=== PATIENT | male | born 1970 | race Caucasian/White ===

== ENCOUNTER → 2018-02-25 | Outpatient (CLI) | payer OTHER | LOC: COL.RAD 07:44 | DX: R74.8 Abnormal levels of other serum enzymes (principal); C15.8 Malignant neoplasm of overlapping sites of esophagus | CPT/HCPCS: Q9967 ==

== ENCOUNTER 2021-10-24 18:20 | Emergency (ER) | payer OTHER ==
[~2021-10-24] VITALS: Ht 180.3 cm; Wt 96.4 kg
[2021-10-24 18:30] VITALS: TEMP 97.3
[2021-10-24 20:37] LABS: BASO % 0.8 % (0.0-2.0); EOS # 0.1 K/mm3 (0.0-0.7); GRAN # 3.4 K/mm3 (1.4-6.5); GRAN % 67.2 % (42.2-75.2); HEMATOCRIT 39.8 % (42.0-52.0); HEMOGLOBIN 13.1 g/dl (13.5-18.0); LYMPH # 0.8 K/mm3 (1.2-3.4); LYMPH % 16.7 % (20.0-51.0); MEAN CELL VOLUME 84 fl (80.0-100.0); MEAN CORPUSCULAR HEMOGLOBIN 28 pg (27.0-31.0); MEAN CORPUSCULAR HGB CONC 33 g/dl (33.0-37.0); MONO # 0.6 K/mm3 (0.1-0.6); MONO % 12.9 % (1.7-9.3); RED BLOOD COUNT 4.72 M/mm3 (4.20-5.60); REDCELL DISTRIBUTION WIDTH-CV 22.1 % (11.5-14.5)
[2021-10-24 20:44] LABS: PLATELET COUNT 46 K/mm3 (130-400)
[2021-10-24 20:47] LABS: ALBUMIN 2.8 gm/dL (3.5-5.0); BILIRUBIN,TOTAL 2.9 mg/dL (0.2-1.2); C-REACTIVE PROTEIN 0.4 mg/dL (0.00-0.50); CALCIUM 8.3 mg/dL (8.4-10.2); CREATININE, serum 0.7 mg/dL (0.72-1.25); POTASSIUM 3.9 mmol/L (3.5-4.5); TOTAL PROTEIN 5.8 gm/dL (6.2-8.1)
[2021-10-24 20:50] LABS: COLLECTION METHOD CLEAN CATCH
[2021-10-24 21:04] LABS: MUCOUS Present (NOT PRESENT); PH 6 (5-8); SQUAMOUS EPITHELIAL None Seen /hpf (0-10); URINE APPEARANCE Clear (CLEAR/HAZY); URINE BACTERIA Many (NONE SEEN); URINE BILIRUBIN Negative (NEGATIVE); URINE BLOOD 2+ (NEGATIVE); URINE COLOR Red (YELLOW); URINE GLUCOSE Negative (NEGATIVE); URINE KETONE Negative (NEGATIVE); URINE LEUKOCYTE ESTERASE Negative (NEGATIVE); URINE NITRATE Negative (NEGATIVE); URINE PROTEIN(semi-quant) 2+ (NEGATIVE); URINE RBC >50 /hpf (0-2); URINE UROBILINOGEN Negative (NEGATIVE)
[2021-10-24] MEDS ORDERED: CEFTIN500 MG PO (22:49)
[2021-10-24 22:52] VITALS: BP 134/96; PULSE 82
== END 2021-10-24 22:52 | disposition home or self-care (01) ==
LOC: COL.ER 18:20
PROVIDERS: Emergency Medicine
DX: N30.91 Cystitis, unspecified with hematuria (principal)
CPT/HCPCS: J0696; J2405; J7030; Q9967

== ENCOUNTER 2021-11-22 13:06 | Day surgery (SDC) | payer OTHER ==
[2021-11-22] VITALS (17 sets, daily range): BP systolic 123–166; BP diastolic 56–102; PULSE 55–91; TEMP 98.1–98.9
[~2021-11-22] VITALS: Ht 180.3 cm; Wt 97.9 kg
[~2021-11-22 13:06] MED LIST: CEFTIN500 MG PO
--- NOTE | 2021-11-22 13:40 | NUR ---
PATIENT AMBULATED INTO AMBULATORY UNIT WITH STEADY GAIT. NO FAMILY WITH PATIENT AT THIS TIME. PATIENT IS ALERT AND ORIENTED X 4. CONSENT EXPLAINED AND PATIENT SIGNED. HISTORY COMPLETED. ASSESSMENT COMPLETED. LUNGS CTA. HEART S1S2, REGULAR. BOWEL SOUNDS HEARD. PULSES FELT. PATIENT HAS PORT. PORT ACCESSED PER POLICY BY SHELTON TOMAS RN. LAB IN ROOM AND GIVEN BLOOD FOR CBC.
[2021-11-22] MEDS ORDERED: PROTONIX 40MG T40 MG PO (13:48)
[2021-11-22] MEDS ORDERED: LIPITOR20 MG PO (13:48)
[2021-11-22] MEDS ORDERED: VITAMIN D 50,1.25 MG PO (13:49)
[2021-11-22 14:28] LABS: BASO # 0.1 K/mm3 (0.0-0.2); BASO % 1.4 % (0.0-2.0); EOS # 0.1 K/mm3 (0.0-0.7); EOS % 3.2 % (0.0-4.0); GRAN # 2.7 K/mm3 (1.4-6.5); GRAN % 60.5 % (42.2-75.2); HEMATOCRIT 40.9 % (42.0-52.0); HEMOGLOBIN 13.4 g/dl (13.5-18.0); LYMPH # 0.9 K/mm3 (1.2-3.4); LYMPH % 19.4 % (20.0-51.0); MEAN CELL VOLUME 83 fl (80.0-100.0); MEAN CORPUSCULAR HEMOGLOBIN 27 pg (27-31); MEAN CORPUSCULAR HGB CONC 33 g/dl (33.0-37.0); MONO # 0.7 K/mm3 (0.1-0.6); PLATELET COUNT 62 K/mm3 (130-400); RED BLOOD COUNT 4.92 M/mm3 (4.20-5.60); REDCELL DISTRIBUTION WIDTH-CV 21.2 % (11.5-14.5)
--- NOTE | 2021-11-22 18:15 | NUR ---
PATIENT ADMITED INTO ROOM 348 POST OP. A&O. VSS. DENIES PAIN OR NAUSEA. PATIENT ASSISTED TO BATHROOM TO VOID BUT WAS UNABLE. PACU REPORTED PATIENT FELT THE URGE TO VOID DOWN THERE BUT DIDN'T HAVE MUCH ON A BLADDER SCAN. WILL CONTINUE TO MONITOR. IF PATIENT MEETS DISCHARGE CRITERIA HE WILL LEAVE LATER TONIGHT. QUARTER FOLDER TAKING OVER.
--- NOTE | 2021-11-22 19:13 | NUR ---
RECEIVED CHANGE OF SHIFT REPORT FROM DAY SHIFT RN.
--- NOTE | 2021-11-22 19:22 | NUR ---
REPORTS UNABLE TO VOID WHEN ADMIT TO ROOM, NO URGE AT THIS TIME. TOLERATING SIPS OF WATER AT THIS TIME. DENIES CHEST PAIN/SOA/NAUSEA. 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 IV FLUID INFUSING PER PORTACATH WITH NO PROBLEMS.
--- NOTE | 2021-11-22 19:45 | NUR ---
PATIENT VOIDED SMALL AMOUNT RED TINGED URINE WITH RED/BLOODY SEDIMENT. ENCOURAGED PATIENT TO DRINK MORE FLUIDS, IE WATER, IF HAS NO NAUSEA. PATIENT VOICED UNDERSTANDING.
--- NOTE | 2021-11-22 20:30 | NUR ---
PATIENT WITH N/V WHEN ATTEMPTING TO VOID WHILE STANDING, EMESIS SMALL THIN LIGHT GREENISH WITH FAINT PINK TINGE OBSERVING MOSTLY DRY HEAVING STANDING AT ROOM SINK. SEE MAR FOR MEDS GIVEN. PATIENT AGREED TO TAKE TYLENOL FOR COMPLAINT OF MILD BLADDER/END OF PENIS DISCOMFORT. OBSERVED 100 ML RED TINGED URINE, NO CLOTS OBSERVED.
--- NOTE | 2021-11-22 21:28 | NUR ---
TOLERATED SOLID FOOD AT THIS TIME, ATTEMPTING TO VOID. IV FLUIDS INFUSING WITH NO PROBLEMS. REPORTS SOME DISCOMFORT S/P TYLENOL GIVEN THAT IS BETTER THAN PRIOR TO TYLENOL TAKEN.
--- NOTE | 2021-11-22 21:30 | NUR ---
TOLERATING PO FLUIDS, TAKING SIPS ONLY AT THIS TIME. HAS NOT VOIDED AGAIN AT THIS TIME. REPORTS SOME MILD DISCOMFORT AFTER TYLENOL GIVEN.
--- NOTE | 2021-11-22 21:50 | NUR ---
VOIDED SMALL AMOUNT OF URINE, RED TINGED, NO CLOTS OBSERVED. DENIES FURTHER NAUSEA.
--- NOTE | 2021-11-22 22:45 | NUR ---
DEACCESSED RIGHT CHEST PORTACATH PER HOSP P/P, PATIENT TOLERATED PROCESS WITH NO C/O REPORTED. PLACED SMALL 2x2 GAUZE AND COVERED WITH SMALL TEGADERM. NO FURTHER BLEEDING ONCE PORTACATH ACCESS NEEDLE REMOVED.
== END 2021-11-22 22:55 | disposition home or self-care (01) ==
LOC: SDCO 13:06 → SURG 18:15 → SDCO 22:55
PROVIDERS: Nurse Anesthetist, Certified Registered
DX: R31.0 Gross hematuria (principal); K21.9 Gastro-esophageal reflux disease without esophagitis; E78.5 Hyperlipidemia, unspecified; G62.9 Polyneuropathy, unspecified; D70.9 Neutropenia, unspecified; D69.6 Thrombocytopenia, unspecified; D64.9 Anemia, unspecified; Z79.899 Other long term (current) drug therapy; Z85.841 Personal history of malignant neoplasm of brain; Z90.89 Acquired absence of other organs; Z85.01 Personal history of malignant neoplasm of esophagus; Z92.21 Personal history of antineoplastic chemotherapy
CPT/HCPCS: J1644; J2405; J2704; J3010; Q9967

== ENCOUNTER 2022-05-09 07:42 | Day surgery (SDC) | payer OTHER ==
[~2022-05-09] VITALS: Ht 180.3 cm; Wt 92.4 kg
[~2022-05-09 07:42] MED LIST changes: +LIPITOR20 MG PO; +PROTONIX 40MG T40 MG PO; +VITAMIN D 50,1.25 MG PO
[2022-05-09] MEDS ORDERED: RAMUCIRUMAB (08:10)
[2022-05-09] MEDS ORDERED: [UNRECOGNIZED DRUG - OTHER] (08:11)
[2022-05-09 08:16] VITALS: BP 125/97; PULSE 69; TEMP 98.6
[2022-05-09 09:25] VITALS: BP 124/90; PULSE 57; TEMP 98.2
--- NOTE | 2022-05-09 09:25 | NUR ---
PATIENT ARRIVES TO ROOM 1 VIA CART. ASSIST X 2 TO CHAIR. VITAL SIGNS WNL. DR AT BEDSIDE. PATIENT REQUESTS APPLE JUICE AND A MUFFIN. WE ARE SUPPOSED TO CALL HIS WHEN HE IS READY FOR DISCHARGE. WILL CONTINUE TO MONITOR.
[2022-05-09 09:40] VITALS: BP 130/87; PULSE 54
--- NOTE | 2022-05-09 09:40 | NUR ---
PATIENT IS MORE AWAKE AND ALERT. TOLERATED MUFFIN AND APPLE JUICE WELL. VITAL SIGNS WNL. I CALLED PATIENT'S TO LET HER KNOW HE WILL BE READY FOR DISCHARGE IN ABOUT 15 MINUTES, SHE IS ON HER WAY.
[2022-05-09 09:55] VITALS: BP 125/98; PULSE 53
--- NOTE | 2022-05-09 09:55 | NUR ---
PATIENT IS READY FOR DISCHARGE. PORT DISCONTINUED PER PROTOCOL. PATIENT IS ALERT AND ORIENTED. IS IN THE WAITING ROOM. DISCHARGE INSTRUCTIONS REVIEWED. PATIENT WILL BE TAKEN DOWNSTAIRS VIA WHEELCHAIR WHEN READY.
--- NOTE | 2022-05-09 10:05 | NUR ---
PORT REMOVED PER PROTOCOL. FLUSHED WITH 10 CC HEPARIN AND 10 CC NORMAL SALINE.
== END 2022-05-09 10:10 | disposition home or self-care (01) ==
LOC: SDCO 07:42
DX: C16.0 Malignant neoplasm of cardia (principal); K29.30 Chronic superficial gastritis without bleeding; K25.7 Chronic gastric ulcer without hemorrhage or perforation
CPT/HCPCS: J2704; J7030

== ENCOUNTER 2022-07-24 10:01 | Emergency (ER) | payer OTHER ==
[~2022-07-24] VITALS: Ht 180.3 cm; Wt 90.9 kg
[~2022-07-24 10:01] MED LIST changes: +RAMUCIRUMAB; +[UNRECOGNIZED DRUG - OTHER]
[2022-07-24 11:13] LABS: BASO % 0.7 % (0.0-2.0); EOS # 0.1 K/mm3 (0.0-0.7); EOS % 1.8 % (0.0-4.0); GRAN # 5.1 K/mm3 (1.4-6.5); GRAN % 88.8 % (42.2-75.2); HEMATOCRIT 42.5 % (42.0-52.0); HEMOGLOBIN 14.1 g/dl (13.5-18.0); LYMPH # 0.3 K/mm3 (1.2-3.4); LYMPH % 5.6 % (20.0-51.0); MEAN CELL VOLUME 82 fl (80.0-100.0); MEAN CORPUSCULAR HEMOGLOBIN 27 pg (27-31); MEAN CORPUSCULAR HGB CONC 33 g/dl (33.0-37.0); MONO # 0.2 K/mm3 (0.1-0.6); MONO % 2.6 % (1.7-9.3); PLATELET COUNT 55 K/mm3 (130-400); RED BLOOD COUNT 5.16 M/mm3 (4.20-5.60); REDCELL DISTRIBUTION WIDTH-CV 20.8 % (11.5-14.5)
[2022-07-24 11:20] LABS: COLLECTION METHOD CLEAN CATCH
[2022-07-24 11:29] LABS: ALBUMIN 2.7 gm/dL (3.5-5.0); BILIRUBIN,TOTAL 2.9 mg/dL (0.2-1.2); C-REACTIVE PROTEIN 3.7 mg/dL (0.00-0.50); CALCIUM 8.4 mg/dL (8.4-10.2); CREATININE, serum 0.79 mg/dL (0.72-1.25); POTASSIUM 4.4 mmol/L (3.5-4.5); TOTAL PROTEIN 5.7 gm/dL (6.2-8.1)
[2022-07-24 12:05] LABS: MUCOUS Present (NOT PRESENT); SQUAMOUS EPITHELIAL 0-2 /hpf (0-10); URINE BACTERIA None Seen /hpf (NONE SEEN); URINE RBC 0-2 /hpf (0-2)
[2022-07-24 12:06] LABS: PH 5.5 (5-8); URINE APPEARANCE Hazy (CLEAR/HAZY); URINE COLOR Amber (YELLOW); URINE GLUCOSE Negative (NEGATIVE); URINE KETONE Negative (NEGATIVE); URINE PROTEIN(semi-quant) 3+ (NEGATIVE)
[2022-07-24 12:07] LABS: URINE BLOOD Negative (NEGATIVE); URINE NITRATE Negative (NEGATIVE)
[2022-07-24 13:45] VITALS: TEMP 99.7
[2022-07-24] MEDS ORDERED: LEVAQUIN 5500 MG/TA1 PO (13:58)
[2022-07-24 14:06] VITALS: BP 137/88; PULSE 77
== END 2022-07-24 14:07 | disposition home or self-care (01) ==
LOC: COL.ER 10:01
PROVIDERS: Nurse Practitioner
DX: R11.2 Nausea with vomiting, unspecified (principal); R51.9 Headache, unspecified; Z20.822 Contact with and (suspected) exposure to COVID-19
CPT/HCPCS: J1200; J2405; J2765; J7030

== ENCOUNTER 2023-04-12 12:02 | Outpatient (CLI) | payer OTHER ==
[~2023-04-12] VITALS: Ht 180.3 cm; Wt 93.8 kg
[~2023-04-12 12:02] MED LIST changes: +LEVAQUIN 5500 MG/TA1 PO
[2023-04-12] MEDS ORDERED: KEYTRUDA25 MG/ML IV (12:19)
[2023-04-12] MEDS ORDERED: COREG 3.123.125 MG/T PO (12:21)
[2023-04-12] MEDS ORDERED: ALDACTONE 25MG25 M1 PO (12:21)
[2023-04-12 12:23] VITALS: BP 154/92; PULSE 59; TEMP 97.6
[2023-04-12 14:30] VITALS: BP 143/80; PULSE 58
[2023-04-12 14:30] LABS: PERITONEAL -POLYMORPHONUCLEAR 16.3 % (0-25)
--- NOTE | 2023-04-12 16:01 | NUR ---
Pt tolerated infusion without issue. He ate muffin and drank water. Port flushed and deaccessed per protocol. Pt assisted out to Pt entrance by wheelchair.
== END 2023-04-12 16:00 | disposition home or self-care (01) ==
LOC: COL.RAD 12:02
PROVIDERS: Internal Medicine
DX: C16.0 Malignant neoplasm of cardia (principal)
CPT/HCPCS: J1644; P9047

== ENCOUNTER 2023-08-16 05:15 | Inpatient (IN) | payer OTHER ==
[2023-08-16] VITALS (8 sets, daily range): BP systolic 93–109; BP diastolic 62–72; PULSE 66–92; TEMP 97.4–98.3
[~2023-08-16] VITALS: Ht 180.3 cm; Wt 84.0 kg
[~2023-08-16 05:15] MED LIST changes: +ALDACTONE 25MG25 M1 PO; +ALDACTONE50 MG PO; +AMOXICILLIN 8751 TAB PO; +COREG 3.123.125 MG/T PO; +CYRAMZA10 MG/ML IV; +FLAGYL500 MG PO; +KEYTRUDA25 MG/ML IV; +LASIX 40MG TABL40 MG PO; -RAMUCIRUMAB
[2023-08-16 06:02] LABS: EOS # 0.1 K/mm3 (0.0-0.7); EOS % 1.6 % (0.0-4.0); GRAN # 2.6 K/mm3 (1.4-6.5); GRAN % 82.6 % (42.2-75.2); HEMATOCRIT 40.3 % (42.0-52.0); HEMOGLOBIN 13.9 g/dl (13.5-18.0); LYMPH # 0.3 K/mm3 (1.2-3.4); LYMPH % 10.3 % (20.0-51.0); MEAN CELL VOLUME 89 fl (80.0-100.0); MEAN CORPUSCULAR HEMOGLOBIN 31 pg (27-31); MEAN CORPUSCULAR HGB CONC 35 g/dl (33.0-37.0); MEAN PLATELET VOLUME 11.2 fl (7.4-10.4); MONO # 0.1 K/mm3 (0.1-0.6); MONO % 3.9 % (1.7-9.3); PLATELET COUNT 109 K/mm3 (130-400); RED BLOOD COUNT 4.54 M/mm3 (4.20-5.60); REDCELL DISTRIBUTION WIDTH-CV 18.3 % (11.5-14.5)
[2023-08-16 06:14] LABS: ALBUMIN 2.2 gm/dL (3.5-5.0); BILIRUBIN,TOTAL 6.9 mg/dL (0.2-1.2); C-REACTIVE PROTEIN 11.74 mg/dL (0.00-0.50); CALCIUM 8.1 mg/dL (8.4-10.2); CREATININE, serum 1.79 mg/dL (0.72-1.25); POTASSIUM 3.6 mmol/L (3.5-4.5); TOTAL PROTEIN 5.1 gm/dL (6.2-8.1)
--- NOTE | 2023-08-16 10:07 | NUR ---
PT ON THE FLOOR APPROX 0900, AT BEDSIDE. ASSESSMENTS DONE. ANSWERING MOST ADMISSION QUESTIONS, MED REC DONE. PT REPORTS MILD ABDOMINAL PAIN AND HAS AN ACCESSED PORT TO RIGHT CHEST, PORT FLUSHES WITH BLOOD RETURN. DR OWUSU AT BEDSIDE AND GAVE THIS NURSE VERBAL ORDER FOR LACTATED RINGERS AT 100 MLS/HR. PT DENIES NEEDS AT THIS TIME AND ORIENTED TO ROOM. BED IN LOWEST POSITION, BED ALARM ON, CALL LIGHT IN REACH.
--- NOTE | 2023-08-16 12:43 | NUR ---
Senior Telecommunications Consultant met with patient to discuss discharge planning. Patient had eyes closed and was tired during interaction, but agreeable to answer questions. Patient lives in [place] with his , Andria (ph#[phone]) and sees Dr. Mccray for primary care. 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 Patient is independent with ADLS and does not use any DME. Patient stated his , Andria is his DPOA-HC although there is not a copy in EMR. Patient plans to return home at time of discharge. Discharge Plan: Home
--- NOTE | 2023-08-16 13:47 | NUR ---
RN advised Family Service Center Director that patient's brought in copy of DPOA-HC paperwork. RN placed paperwork in the chart.
--- NOTE | 2023-08-16 14:06 | NUR ---
RESPIRATORY THERAPY IN ROOM AND NOTIFIED THIS NURSE THAT PT O2 SATS LESS THAN 90% ON ROOM AIR AND 4L NASAL CANNULA APPLIED. PT REPORTS PAIN RELIEF AFTER PRN MED AND O2 SATS GREATER THAN 92 ON OXYGEN. ANTIBIOTIC STARTED PER ORDER AND PT DENIES NEEDS AT THIS TIME. BED IN LOWEST POSITIN, CALL LIGHT IN REACH, BED ALARM ON
--- NOTE | 2023-08-16 19:00 | NUR ---
PT RESTING IN BED WITH EYES CLOSED, RISE AND FALL OF CHEST NOTED. PT ON 4L NASAL CANNULA AND RPEORTING SOME ABDOMINAL PAIN BUT DENIES NEED FOR PRN. DINNER ORDERED, FLUIDS RUNNING PER ORDER AND PT DENIES NEEDS AT THIS TIME. BED IN LOWEST POSITION, CALL LIGHT IN REACH, BED ALARM ON
--- NOTE | 2023-08-16 20:00 | NUR ---
Initial shift assessment done- states having abd pain 04/21 -is slowing eating a few bites off his supper- states doesnt want to get sick. Given the Morphine 2mg IV for abd pain,, Alert/Oriented x4 , SCD,s put on pt as per orders, On Fall Risk- understands to call for assistance up. Using urinal at bedside. Has IV fluids of LR at 100cc/hr per PORT to right chest. O2 at 4L/nc- denies SOB. VSS.
[2023-08-17] VITALS (12 sets, daily range): BP systolic 98–119; BP diastolic 58–74; PULSE 95–106; TEMP 98.4–98.7
[2023-08-17 05:47] LABS: CALCIUM 7.9 mg/dL (8.4-10.2); CREATININE, serum 2.05 mg/dL (0.72-1.25); POTASSIUM 4.4 mmol/L (3.5-4.5)
--- NOTE | 2023-08-17 06:00 | NUR ---
Did sleep fairly well tonight- VSS, o2 at 3L/nc with sats 94%, did drop down 81 % on RA when pt had accidently taken off the o2- did come up quickly with the 02, having abd pain rating about 6/10,,given Morphine IV throughout the night- overall effective down to 3/10,, denies nausea. IV continues of LR at 100cc/hr.
[2023-08-17 06:12] LABS: MEAN CELL VOLUME 88 fl (80.0-100.0); MEAN CORPUSCULAR HEMOGLOBIN 31 pg (27-31); MEAN CORPUSCULAR HGB CONC 35 g/dl (33.0-37.0); PLATELET COUNT 76 K/mm3 (130-400); RED BLOOD COUNT 3.89 M/mm3 (4.20-5.60); REDCELL DISTRIBUTION WIDTH-CV 18.3 % (11.5-14.5)
[2023-08-17 06:14] LABS: HEMATOCRIT 34.2 % (42.0-52.0)
[2023-08-17 06:44] LABS: EOSINOPHIL 1 % (0-4); LYMPHOCYTE 5 % (20.0-51.0); METAMYELOCYTE 2 % (0-0); NEUTROPHILS 19 % (42.0-75.2)
[2023-08-17 06:45] LABS: PLATELET ESTIMATE DECREASED (NORMAL)
[2023-08-17 06:46] LABS: OVALOCYTES 1+
[2023-08-17 06:47] LABS: BAND 68 % (0-10); BURR CELLS 3+
--- NOTE | 2023-08-17 08:26 | NUR ---
Recieved report from [place] at 0700. Went to observe patient and he was resting in bed with his eyes closed with an observable rise and fall of the chest. Patient is on fall precautions, with safety measures in place to include yellow gown and socks, bed alarm, and low bed. Patient normally ambulates independently at home with no assistive devices, but is feeling weak, and unsteadsy which warrants the fall precautions. Patient has LR infusing at 100ml hour via portacath. Portacath has no redness, swelling, drainage. or any other s/sx of infiltration. Patient became alert when taking vitals and he allowed me to do my shift assessement. Pt A&O x4, has a pleasant disposition and was cooperative during the assessment. States pain is 2/10 on a scale of 0-10, until rolled to check skin integrity on his back side. Pain went up to a 5/10, but denies need for pain medication at this time. Pain subisded after a few minutes and went back down to 2-10. Resident does have a firm abd with distention. Patient states his last bowel movement was yesterday, but would like a stool softner d/t taking the morphine. Patient states colace is what has worked best for him in the past. Patient is currently eating breakfast. Call light in reach, bed in low position.
--- NOTE | 2023-08-17 09:00 | NUR ---
PT AWAKE IN BED UPON ENTERING, ASSESSMENT DONE. PT ON 3L NASAL CANNULA AND FLUIDS RUNNING PER ORDER. PT REPORTS MILD ABDOMINAL PAIN AND DENIES NEED FOR PRN MED. STUDENT NURSE DOING A PHYSICAL ASSESSMENT AND GIVING MORNING MEDS. PT DENIES NEEDS AT THIS TIME. BED IN LOWEST POSITION, CALL LIGHT IN REACH, BED ALARM ON
[2023-08-17 10:28] LABS: ALBUMIN 2.2 gm/dL (3.5-5.0); BILIRUBIN,DIRECT 3.8 mg/dL (0.0-0.5); BILIRUBIN,TOTAL 6.1 mg/dL (0.2-1.2); TOTAL PROTEIN 4.5 gm/dL (6.2-8.1)
--- NOTE | 2023-08-17 10:30 | NUR ---
Initial visit; Patient thanked Gravel Inspector for introducing herself though declined spiritual care at this time.
--- NOTE | 2023-08-17 11:05 | NUR ---
Pt remains alertand oriented. Patient sitting in chair talking with a visitor. Patient seems relaxed and is showing no signs of distress. Pt states pain is 3/10, and it is not so bad if he is just holding still.
--- NOTE | 2023-08-17 16:51 | NUR ---
Retail Customer Service Specialist spoke with patient's , Nela to discuss discharge planning. Nela advised she and patient have started goals of care/hospice discussions but that patient may not be willing to transition to hospice at this time. Nela believes patient is hospice appropriate and would be interested in the [facility] [place] if patient does end up transitioning to hospice. Nela requests all goals of care discussions be between she and patient. Nela advised many family members are coming to town to visit patient. Nela will be out of town Sunday with their son but that she will be available by phone. CATHERINE collaborated with Hospitalist on the above.
--- NOTE | 2023-08-17 18:38 | NUR ---
PT IN BED EATING DINNER, FAMILY AT BEDSIDE. PT ON 3L NASAL CANNULA AND HAS FLUIDS RUNNING PER ORDER. PT REPORTS ABDOMINAL PAIN BUT DENIES NEED FOR PRN AT THIS TIME. BED IN LOWEST POSITION, CALL LIGHT IN REACH, BED ALARM ON
--- NOTE | 2023-08-17 19:28 | NUR ---
REPORT GIVEN TO NIGHT NURSE
[2023-08-18] VITALS (12 sets, daily range): BP systolic 94–134; BP diastolic 59–82; PULSE 62–126; TEMP 97.9–98.7
--- NOTE | 2023-08-18 05:10 | NUR ---
ASSESSMENT COMPLETE FOR COMMAND POST SUPERINTENDENT. PT HAD A PRETTY GOOD NIGHT UNTIL A LITTLE AFTER 4AM, WHEN HIS PAIN CAME ROARING BACK. THE SCHEDULED MORPHINE SEEMED TO WORK WELL, BUT SEVERAL HOURS AFTERWARDS, PT'S PAIN IS NOT VERY CONTROLLED. PT DENIED CHEST PAIN, N,V,D OR DIZZINESS. CALL LIGHT WITHIN REACH.
[2023-08-18 05:43] LABS: CALCIUM 8.1 mg/dL (8.4-10.2); CREATININE, serum 2.05 mg/dL (0.72-1.25); POTASSIUM 4.3 mmol/L (3.5-4.5)
[2023-08-18 05:45] LABS: BASO # 0.1 K/mm3 (0.0-0.2); BASO % 0.8 % (0.0-2.0); EOS # 0.4 K/mm3 (0.0-0.7); EOS % 4.1 % (0.0-4.0); GRAN % 74.8 % (42.2-75.2); HEMOGLOBIN 12.2 g/dl (13.5-18.0); LYMPH # 0.8 K/mm3 (1.2-3.4); MEAN CELL VOLUME 88 fl (80.0-100.0); MEAN CORPUSCULAR HEMOGLOBIN 30 pg (27-31); MEAN CORPUSCULAR HGB CONC 34 g/dl (33.0-37.0); MEAN PLATELET VOLUME 10.7 fl (7.4-10.4); MONO # 1.3 K/mm3 (0.1-0.6); MONO % 12.5 % (1.7-9.3); PLATELET COUNT 100 K/mm3 (130-400); RED BLOOD COUNT 4.02 M/mm3 (4.20-5.60); REDCELL DISTRIBUTION WIDTH-CV 18.2 % (11.5-14.5)
[2023-08-18 05:48] LABS: HEMATOCRIT 35.5 % (42.0-52.0)
[2023-08-18 06:26] LABS: ANISOCYTOSIS 1+; BAND 13 % (0-10); EOSINOPHIL 8 % (0-4); LYMPHOCYTE 10 % (20.0-51.0); NEUTROPHILS 59 % (42.0-75.2); PLATELET ESTIMATE DECREASED (NORMAL)
[2023-08-18 06:27] LABS: BURR CELLS 1+; TEAR DROP CELLS 1+
--- NOTE | 2023-08-18 07:00 | NUR ---
PT RESTING IN BED. PT IS ON RA. PT IS AXOX3. PT HAS CALL LIGHT AND INSTRUCTED TO CALL WITH ALL NEEDS. 0850-PRN PAIN MEDS GIVEN. PT STATING PAIN HAS BEEN PRETTY BAD LATELY. DISCUSSED SCHEDULED MORPINE AND PRN MORPHINE. WILL NOTIFY PHYSICIAN OF PAIN ISSUES. 929-SPOKE WITH REGARDING ABOVE. WILL PLAN TO GIVEN PRN MORPHINE NEEDED.
--- NOTE | 2023-08-18 11:43 | NUR ---
food counter worker was notified by nursing patient's family would like patient to receive hospice services through [facility] starting Sunday next week. Nursing expressed patient would like to continue to receive medical services until Sunday. Social work will follow.
--- NOTE | 2023-08-18 12:03 | NUR ---
Mechanical Assembly Technician rounds: Mechanical Assembly Technician visit attempted; Patient had visitors.
[2023-08-19] VITALS (12 sets, daily range): BP systolic 81–105; BP diastolic 48–84; PULSE 102–111; TEMP 96.7–98.1
--- NOTE | 2023-08-19 05:15 | NUR ---
ASSESSMENT COMPLETE FOR UNDERWRITING DIRECTOR. PT PRETTY MUCH SLEPT THE WHOLE SHIFT. PT WASN'T IN VERY MUCH PAIN WHEN HIS 2100HRS DOSE OF MS CONTIN WAS DUE, SO MED HELD PER REQUEST UNTIL LATER, SO THAT PT WASN'T IN MUCH IN THE MORNING, SO HE WAS THE PREVIOUS MORNING. PT DENIED CHEST PAIN, SOB, N,V,D OR DIZZINESS. LATER IN SHIFT, AID FELT PT HAD NOT PEED VERY MUCH DURING THE SHIFT. AID BLADDER SCANNED PT, WHICH APPEARED TO SHOW 840ML IN BLADDER. HOSPITALIST CALLED. CHAPMAN ORDERED AND PLACED, ONLY ABOUT 350ML OUT. BLADDER SCAN REPEATED. SCAN APPEARED TO SHOW ABOUT 625ML IN BLADDER. HVAC ENGINEER CONSULTED. CHARGE FELT SOME ASCITES WAS BEING VIEWED. HOSPITALIST CALLED. SHE FELT THE SAME. WILL CONTINUE TO MONITOR. CALL LIGHT WITHIN REACH.
[2023-08-19 05:36] LABS: HEMATOCRIT 40.7 % (42.0-52.0); HEMOGLOBIN 13.9 g/dl (13.5-18.0); MEAN CELL VOLUME 90 fl (80.0-100.0); MEAN CORPUSCULAR HEMOGLOBIN 31 pg (27-31); MEAN CORPUSCULAR HGB CONC 34 g/dl (33.0-37.0); MEAN PLATELET VOLUME 10.5 fl (7.4-10.4); PLATELET COUNT 128 K/mm3 (130-400); RED BLOOD COUNT 4.55 M/mm3 (4.20-5.60); REDCELL DISTRIBUTION WIDTH-CV 18.7 % (11.5-14.5)
[2023-08-19 06:43] LABS: ANISOCYTOSIS 1+; BAND 40 % (0-10); BURR CELLS 1+; EOSINOPHIL 1 % (0-4); LYMPHOCYTE 5 % (20.0-51.0); NEUTROPHILS 37 % (42.0-75.2); PLATELET ESTIMATE NORMAL (NORMAL)
[2023-08-19 06:56] LABS: CALCIUM 8.5 mg/dL (8.4-10.2); CREATININE, serum 3.35 mg/dL (0.72-1.25); POTASSIUM 5.4 mmol/L (3.5-4.5)
--- NOTE | 2023-08-19 08:20 | NUR ---
MD NOTIFIED OF CHANGE IN PATIENT STATUS, MD AT BEDSIDE ASSESSING PATIENT
--- NOTE | 2023-08-19 08:24 | NUR ---
PATIENT ASLEEP RESTING IN BED. PATIENT OPENED EYES WHEN RN CALLED HIS NAME, HOWEVER FELL BACK TO SLEEP. PATIENTS RESPIRATIONS CURRENTLY 8 PER MINUTE. ON THE MOST RECENT RECHECK PATIENTS BLOOD SUGAR REACHED OVER 70. D5 1/2 NS INITIATED. RN WILL INFORM MD. FALL PRECAUTIONS IN PLACE.
--- NOTE | 2023-08-19 08:43 | NUR ---
PATIENTS INFORMED BY THIS RN OF CHANGE IN PATIANNA STATUS. PER PATIENTS , SHE WILL NOT BE ABLE TO COME TO HOSPITAL UNTIL 12. KALNS STATED SHE IS SENDING HER IN-LAWS TO COME AND SEE THE PATIENT.
--- NOTE | 2023-08-19 09:03 | NUR ---
AROUND 0700HRS LAB CALLED STATING PT'S LAB GLUCOSE WAS 30. I QUICKLY WENT IN TO CHECK PT'S BLOOD SUGAR WITH THE GLUCOSE MONITOR. GLUCOSE MONITOR READ 18MG/DL. NIGHTSHIFT CHANGE RN INFORMED. BS RECHECKED, WHILE DAYSHIFT RN PULLED AN AMP (D5W 25GM/50ML SYRINGE). RECHECK WITH EAR WAS 25, AND VIA CENTRAL LINE 29. D5W PUSHED. LAST BS WAS 73. WILL CONTINUE TO MONITOR AND PASS ON TO DAYSHIFT RN. CALL LIGHT WITHIN REACH.
--- NOTE | 2023-08-19 09:32 | NUR ---
RN CALLED SONAR SUBSYSTEM EQUIPMENT OPERATOR . CHAPLAIN MORRIS ON HER WAY FROM [place].
--- NOTE | 2023-08-19 10:24 | NUR ---
Consultants Intern promotion producer: Consultants Intern was called in by RN. Upon arrival at the hospital, Consultants Intern learned that family was able to connect with a Assistant Professor Of Geography. Assistant Professor Of Geography visited Patient.
--- NOTE | 2023-08-19 11:48 | NUR ---
PATIENT SLEEPING, RESTING IN BED. PATIENT AROUSED TO NAME, PATIENT DENIES ANY PAIN AT THIS TIME. PATIENTS PARENTS ARE AT THE BEDSIDE. CHAPMAN INTACT, CALL LIGHT WITHIN REACH. COPMLIMENTARY BASKET DELIVERED TO ROOM
--- NOTE | 2023-08-19 13:23 | NUR ---
PATIENTS NOW AT BEDSIDE
--- NOTE | 2023-08-19 13:38 | NUR ---
PATIENTS STATED IF SHE WAS UNABLE TO BE REACHED [facility] INFORMATION PASSED TO HOUSE SUPRVISOR.
--- NOTE | 2023-08-19 15:02 | NUR ---
Hand Wrapper Operator notified that there was a change in patient's status. SW met with patient's and offered support. Patient's family is at bedside.
--- NOTE | 2023-08-19 16:57 | NUR ---
HOSPITALIST INFORMED OF PATIENTS BLOOD PRESSURE OF 81/54.
[2023-08-19 17:23] LABS: ALBUMIN 1.9 gm/dL (3.5-5.0); BILIRUBIN,TOTAL 7.4 mg/dL (0.2-1.2); TOTAL PROTEIN 4.9 gm/dL (6.2-8.1)
[2023-08-19 17:39] LABS: BILIRUBIN,DIRECT 5.2 mg/dL (0.0-0.5)
--- NOTE | 2023-08-19 18:05 | NUR ---
PER SHE HAS SPOKEN TO NIGHT SOCIAL WORKER DELINQUENCY PREVENTION WELL HOSPITALIST DR QUINTEROS. PER DR BORJAS THEY WILL NOT ESCALATE CARE, PATIENTS IS AWARE OF THIS.
--- NOTE | 2023-08-19 18:41 | NUR ---
PATIENTS PARENTS, BROTHER AND 3 FAMILY FRIENDS AT BEDSIDE. PATIENTS RESPIRATIONS 7 VA MINUTE. PATIENT AROUSED TO NAME AND DENIED PAIN AT THIS TIME. ORAL CARE PRODUCTS IN ROOM.
[2023-08-20 00:15] VITALS: BP_SYST 94
[2023-08-20 03:25] VITALS: BP 95/52; PULSE 100; TEMP 96.5
[2023-08-20 04:15] VITALS: BP_SYST 95
[2023-08-20 07:13] VITALS: BP 90/64; PULSE 99; TEMP 96.6
[2023-08-20 09:00] VITALS: BP_SYST 90
--- NOTE | 2023-08-20 14:00 | NUR ---
PT FAMILY REQUESTING THIS NURSE TO LISTEN TO PTS LUNGS. FAMILY REPORTS THAT PT "SOUNDS LIKE HES DROWNING". LUNGS CLEAR WHEN ASSESSED AND PT UNABLE TO CLEAR HIS THROAT AT THIS TIME DUE TO WEAKNESS. PT UNABLE TO COMMUNICATE VERBALLY AT THIS TIME BUT FAMILY IS REPORTING INCREASED AGITATION AND IS REQUESTING PRN MORPHINE. PT AND FAMILY HAVE NO OTHER OBVIOUS NEEDS AT THIS TIME.
--- NOTE | 2023-08-20 18:45 | NUR ---
PT POINTING AT MOUTH AND VISIBLE SECRETIONS NOTED, PT SUCTIONED AND PT NO LONGER REACHING IN MOUTH. SHORTLY AFTER REPORTING THAT SHE THINKS PT IS HALLUNCINATING. UPON ENTERING PT IS MAKING GESTURES WITH HIS HANDS IF HES GRABBING FOR SOMETHING. PT TOOK OFF HIS OXYGEN AND GRABBED CHAPMAN. PT UNABLE TO VERBALIZE NEEDS AT THIS TIME BUT SHAKES HEAD WHEN ASKED IF HE WAS IN PAIN. STATES THAT PT HAS BEEN GRABBING AT THINGS FOR THE PAST 10 MINS. PRN ATIVAN GIVEN. PT HAS NO OBVIOUS NEEDS AT THIS TIME AND DENIES NEEDS AT THIS TIME.
--- NOTE | 2023-08-20 20:00 | NUR ---
ILENE IS CURRENTLY ON COMFORT CARE AND IS EXHIBITED MAIRA-MEJIA RESPIRATIONS.FAMILY IS BEDSIDE AND EXHIBITS GOOD UNDERSTANDING OF TREATMENT HERE ON OUT
--- NOTE | 2023-08-21 06:00 | NUR ---
ILENE CONTINUES TO HAVE MAIRA-MEJIA RESPIRATIONS AND HAS RECIEVED IV MORPHINE FOR PAIN AND IS NOT AXO. IS BEDSIDE AND SHE IS WELL INFORMED AND DEMONSTRATES ACCEPTANCE AND UNDERSTANDING OF TREATMENT AND END-OF-LIFE EXPECTATIONS.
--- NOTE | 2023-08-21 11:15 | NUR ---
Cath flow administered to PAC and left in line for 30 minutes. Now able to get blood return and flushes without complication.
--- NOTE | 2023-08-21 13:50 | NUR ---
Patient has been non-alert and sleeping since start of shift. Does not arouse to name, voice, or touch. Slight restlessness noted at beginning of shift, PRN PO morphine administered and effective. PRN Ativan initially pulled, but no blood return noted to port. Cathflo administered to port to ensure patent line, blood return later noted. Patient has not appeared restless since. PRN PO morphine given Q1-2 hr to keep patient comfortable. Family at bedside. Roberts catheter remains in place, very little urine output noted. All needs met at this time.
--- NOTE | 2023-08-21 16:06 | NUR ---
Patient continues to sleep and be unresponsive to voice or touch. Breaths unlabored and deep. Secretions noted to be building up inside mouth, suction performed and PRN Atropine administered. Family remains at bedside, all needs met at this time.
--- NOTE | 2023-08-21 21:00 | NUR ---
ILENE CONTINUES TO HAVE MAIRA-MEJIA RESPIRATIONS AND REMAINS UNCONSCIOUS. COMFORT CARE MEASURES IN PLACE AND FAMILY IS BEDSIDE. SUCTION AND ATROPINE PROVIDED.
--- NOTE | 2023-08-22 | NUR ---
DISCONTINUED ILENE'S CHAPMAN. FAMILY APPRECIATIVE, THEY STATED CATHETERS WERE UNPLEASANT FOR ILENE,
--- NOTE | 2023-08-22 09:00 | NUR ---
Coach Mechanic spoke with Hospitalist who advised patient's breathing pattern has changed and anticipates patient passing in this facility. SW will continue to follow as needed. Discharge Plan: [facility]
--- NOTE | 2023-08-22 12:00 | NUR ---
PATIENT SHIFT ASSESSMENT COMPLETED. PATIENT WAS NON-ALERT AND SLEEPING. PATIENT HAS MAIRA- STROKE RESPIRATIONS AND SWELLING TO BILATERAL LOWER EXTREMITIES AND UPPER EXTREMITIES. PATIENTS FAMILY AT BEDSIDE. PATIENT ORAL CAVITY WAS SUCCIONED TO CLEAR SOME SECRETIONS IN HIS MOUTH. CALL LIGHT WITHIN REACH AND FAMILY NOTIFIED THAT THEY CAN CALL ANYTIME THEY OR THE PATIENT NEEDS SOMETHING.
--- NOTE | 2023-08-22 18:14 | NUR ---
OXYGEN WAS DISCONTINUED PER FAMILY REQUEST. WITHIN A FEW MINUTES AT 1800 PATIENT STOPPED BREATHING AND EXPRESSED HE WAS GONE.CONFIRMED THAT HEART WAS NO LONGER BEATING WITH SECOND RN. DR. CASTELLANOS WAS NOTFIED AND E COMMERCE WEB DEVELOPER WAS NOTIFIED. FAMILY AT BEDSIDE WITH PATIENT.
--- NOTE | 2023-08-22 19:07 | NUR ---
Call placed to [facility]. Patient is not a candidate for tissue due to hx of Cancer. They will refer onto the [facility]. Awaiting a call. Family in the room. Dr. Mccray's answering service made aware of patients
--- NOTE | 2023-08-22 21:44 | NUR ---
ILENE AT18:OO SURROUNDED BY FAMILY. POSTMORTUARY CARE PROVIDED BY STAFF AND ILENE WAS RELEASED TO HOME AT 21:15. EWA TOOK ALL BELONGINGS.
== END 2023-08-22 22:15 | disposition expired | DRG 371 ==
LOC: COL.ER 05:15 → MEDICAL 06:40 → COL.ER 06:42 → MEDICAL 06:42 → COL.ER 08:08 → MEDICAL 08-17 10:17
PROVIDERS: Emergency Medicine; Hospitalist; ADMIT Internal Medicine
DX: K65.2 Spontaneous bacterial peritonitis (principal); J96.01 Acute respiratory failure with hypoxia; K76.7 Hepatorenal syndrome; C15.9 Malignant neoplasm of esophagus, unspecified; N17.9 Acute kidney failure, unspecified; R18.8 Other ascites; E87.20 Acidosis, unspecified; E87.1 Hypo-osmolality and hyponatremia; K76.6 Portal hypertension; E44.0 Moderate protein-calorie malnutrition; C79.9 Secondary malignant neoplasm of unspecified site; R65.10 Systemic inflammatory response syndrome (SIRS) of non-infectious origin without acute organ dysfunction; Z66 Do not resuscitate; Z51.5 Encounter for palliative care; R09.2 Respiratory arrest; Z88.8 Allergy status to other drugs, medicaments and biological substances; K72.90 Hepatic failure, unspecified without coma; D69.6 Thrombocytopenia, unspecified; D64.9 Anemia, unspecified; K74.60 Unspecified cirrhosis of liver; E16.2 Hypoglycemia, unspecified; I95.9 Hypotension, unspecified; Z68.25 Body mass index [BMI] 25.0-25.9, adult; R63.4 Abnormal weight loss; E78.5 Hyperlipidemia, unspecified
CPT/HCPCS: OP; C9113; J1170; J2060; J2270; J2405; J2543; J2550; J2997; J7030; J7120; P9047